=== PATIENT | female | born 1995 | race Two or more races ===

== ENCOUNTER 2024-01-04 17:23 | Emergency (ER) | payer MEDICAID ==
[~2024-01-04] VITALS: Ht 177.8 cm; Wt 57.0 kg
[2024-01-04 17:24] VITALS: O2SAT 100
[2024-01-04 17:40] VITALS: BP 124/82; PULSE 139; RESP 28; TEMP 98; O2SAT 100
[2024-01-04] MEDS: LORAZEPAM 1MG TABLET PO NR (18:53)
[2024-01-04] MEDS ORDERED: LORA-249 MT (19:03)
== END 2024-01-04 19:17 | disposition home or self-care (01) ==
LOC: ER 17:23
DX: F41.0 Panic disorder [episodic paroxysmal anxiety] (principal); R00.2 Palpitations; R42 Dizziness and giddiness; F41.9 Anxiety disorder, unspecified
CPT/HCPCS: 71045; 93005; 99283

== ENCOUNTER 2024-01-09 20:01 | Emergency (ER) | payer MEDICAID ==
[~2024-01-09] VITALS: Ht 165.1 cm; Wt 55.0 kg
[~2024-01-09 20:01] MED LIST: LORA-249 MT
[2024-01-09 20:29] VITALS: O2SAT 100
[2024-01-09 22:07] LABS: CHLORIDE 108 mEq/L (98-107); POTASSIUM 3.9 mEq/L (3.5-5.1); SODIUM 142 mEq/L (136-145)
[2024-01-09 22:08] LABS: CARBON DIOXIDE 28 mEq/L (21-32)
[2024-01-09 22:09] LABS: CALCIUM 10.3 mg/dL (8.7-10.4)
[2024-01-09 22:10] LABS: BASOPHILS % 0.3 % (0.0-2.0); EOSINOPHILS % 0.9 % (0.0-5.0); HEMATOCRIT. 43.2 % (36.0-48.0); HEMOGLOBIN. 13.8 g/dL (12.0-16.0); LYMPHOCYTES % 20.8 % (20.0-50.0); MEAN CORPUSCULAR HEMOGLOBIN 28.4 pg (28.0-32.0); MEAN CORPUSCULAR HGB CONC 32.1 g/dL (31.0-37.0); MEAN CORPUSCULAR VOLUME 88.5 fL (81.0-99.0); MEAN PLATELET VOLUME 8.5 fl (7.4-10.4); MONOCYTES % 5.4 % (2.0-8.0); NEUTROPHILS % 72.6 % (40.0-76.0); PLATELET 160 x1000/uL (130-400); RED BLOOD CELL COUNT 4.88 mill/uL (4.2-5.4); RED CELL DISTRIBUTION WIDTH 13.3 % (11.6-14.6); WHITE BLOOD COUNT 6.6 x1000/uL (4.5-11.0)
[2024-01-09 22:13] LABS: CREATININE 0.8 mg/dL (0.6-1.0); GLUCOSE 106 mg/dL (70-105)
[2024-01-09 22:14] LABS: UREA NITROGEN BLOOD 11 mg/dL (9-23)
[2024-01-09 22:15] LABS: ALANINE AMINOTRANSFERASE 9 IU/L (10-49); ASPARTATE AMINOTRANSFERASE 13 IU/L (<34)
[2024-01-09 22:16] LABS: BILIRUBIN DIRECT 0.3 mg/dL (<=3.0); BILIRUBIN TOTAL 0.8 mg/dL (0.1-1.0); PROTEIN TOTAL 7.8 g/dL (6.0-8.3)
[2024-01-09] MEDS: DICYCLOMINE HCL 10MG/ML 2ML VIAL IM ONE (22:30)
[2024-01-09 22:35] LABS: HCG SCREEN NEGATIVE
[2024-01-09 23:00] VITALS: BP 100/59; PULSE 83; RESP 16; TEMP 36.66960; O2SAT 100
== END 2024-01-09 23:53 | disposition home or self-care (01) ==
LOC: ER 20:01
DX: F41.9 Anxiety disorder, unspecified (principal)
CPT/HCPCS: 99283; 80076; 80048; 84703; 83690; 85025; 36415; 96372; J0500